=== PATIENT | male | born 1945 | race Caucasian/White ===

== ENCOUNTER 2017-12-13 10:52 | Day surgery (SDC) | payer OTHER ==
[~2017-12-13] VITALS: Ht 175.3 cm; Wt 90.3 kg
[~2017-12-13 10:52] MED LIST: ASPI-496 PO; CHOL200074 PO; FINA5TAB4 PO; LISI-170 PO; OMEP-110 PO; PRAV40TA2 PO
[2017-12-13] MEDS ORDERED: LACTATED RINGERS 1,000 ML IV SCH (11:36)
[2017-12-13 11:37] VITALS: BP 163/94
[2017-12-13] MEDS ORDERED: PLEASE ENTER HEIGHT AND WEIGHT MC SCH (12:00)
[2017-12-13] MEDS ORDERED: PROPOFOL 50 ML ONE (13:10)
[2017-12-13] MEDS ORDERED: ALBUTEROL/IPRATROPIUM 2.5MG/0.5MG, 3 ML NPPB PRN (13:30)
[2017-12-13] MEDS ORDERED: MIDAZOLAM 1 MG/ML, 2ML IV PRN (13:30)
[2017-12-13] MEDS ORDERED: FENTANYL PF 100 MCG/2ML IV PRN (13:30)
[2017-12-13] MEDS ORDERED: ONDANSETRON ODT 8 MG PO PRN (13:30)
[2017-12-13] MEDS ORDERED: LABETALOL 5MG/ML, 20ML IV PRN (13:30)
[2017-12-13] MEDS ORDERED: PROMETHAZINE 25 MG/ML, 1ML IV PRN (13:30)
[2017-12-13] MEDS ORDERED: EPHEDRINE 50 MG/ML, 1ML IVPush PRN (13:30)
== END 2017-12-13 15:10 ==
LOC: OUT 10:52
PROVIDERS: ATTEND Internal Medicine Geriatric Medicine
DX: K86.1 Other chronic pancreatitis (principal); K86.9 Disease of pancreas, unspecified; K20.8 Other esophagitis
CPT/HCPCS: 43239; 43242; 88172; 88173; 88305; 88307; 93005; J2704; J7120; 88342; G0461

== ENCOUNTER → 2018-03-08 | Outpatient (CLI) | payer OTHER ==
[~2018-03-08] MED LIST changes: +RANI150C PO
[2018-03-08 14:19] LABS: BASOPHILS # (AUTO) 0.02 x10^3/uL (0-0.1); BASOPHILS % (AUTO) 0 % (0-1); EOSINOPHILS # (AUTO) 0.13 x10^3/uL (0-0.4); EOSINOPHILS % (AUTO) 2 % (1-7); LYMPHOCYTES # (AUTO) 1.59 x10^3/uL (1-3.4); LYMPHOCYTES % (AUTO) 26 % (22-44); MD NO; MEAN CORPUSCULAR HEMOGLOBIN 30.9 pg (27.5-34.5); MEAN CORPUSCULAR HGB CONC 34.1 g/dL (33.2-36.2); MEAN CORPUSCULAR VOLUME 90.6 fL (81-97); MEAN PLATELET VOLUME 7.7 fL (7.4-10.4); MONOCYTES # (AUTO) 0.64 x10^3/uL (0.2-0.8); MONOCYTES % (AUTO) 11 % (2-9); NEUTROPHILS # (AUTO) 3.69 x10^3/uL (1.8-6.8); NEUTROPHILS % (AUTO) 61 % (42-75); PLATELET COUNT 258 x10^3/uL (130-400); RED BLOOD COUNT 5.29 x10^6/uL (4.38-5.82); RED CELL DISTRIBUTION WIDTH 12.9 % (9.4-14.8)
[2018-03-08 14:27] LABS: ALBUMIN 3.9 g/dL (3.4-5.0); ANION GAP 6 mmol/L (5-15); CALCIUM 8.6 mg/dL (8.5-10.1); CHLORIDE 107 mmol/L (98-107)
[2018-03-08 14:28] LABS: MICROSCOPIC NOT IND
[2018-03-08 14:30] LABS: ALANINE AMINOTRANSFERASE 27 U/L (12-78); ALKALINE PHOSPHATASE 81 U/L (45-117); BILIRUBIN,TOTAL 1.1 mg/dL (0.2-1.0); CREATININE 1.16 mg/dL (0.7-1.3); TOTAL PROTEIN 7.8 g/dL (6.4-8.2)
== END | disposition home or self-care (01) ==
LOC: STAR 12:52
PROVIDERS: ATTEND Urology
DX: Z01.818 Encounter for other preprocedural examination (principal); D49.512 Neoplasm of unspecified behavior of left kidney; J44.9 Chronic obstructive pulmonary disease, unspecified; Z87.891 Personal history of nicotine dependence
CPT/HCPCS: 36415; 80053; 81003; 85025; 87086; 93005

== ENCOUNTER 2018-03-16 05:44 | Inpatient (IN) | payer OTHER ==
[~2018-03-16] VITALS: Ht 175.3 cm; Wt 96.4 kg
[2018-03-16] MEDS ORDERED: FUROSEMIDE 20 MG/2 ML ONE (06:43)
[2018-03-16] MEDS ORDERED: BUPIVACAINE 0.25% ONE (06:43)
[2018-03-16] MEDS ORDERED: THROMBIN 5,000 UNIT VIAL TP ONE (06:43)
[2018-03-16] MEDS ORDERED: MANNITOL PMX 20% 500 ML ONE (06:44)
[2018-03-16] MEDS ORDERED: LACTATED RINGERS 1,000 ML IV SCH (06:44)
[2018-03-16] MEDS ORDERED: EPINEPHRINE 1 MG/ML, 1ML ONE (06:44)
[2018-03-16 06:48] VITALS: BP 152/81
[2018-03-16] MEDS ORDERED: FENTANYL PF 250 MCG/5ML ONE ×4 (07:19→10:01)
[2018-03-16] MEDS ORDERED: MIDAZOLAM 1 MG/ML, 2ML ONE (07:19)
[2018-03-16] MEDS ORDERED: OxyconTIN ER 10 MG TAB.ER PO ONE (07:30)
[2018-03-16] MEDS ORDERED: SCOPOLAMINE PATCH, 1.5MG PATCH.TD72 TD ONE (07:30)
[2018-03-16] MEDS ORDERED: ACETAMINOPHEN 500 MG TABLET PO ONE (07:30)
[2018-03-16] MEDS ORDERED: BUPIVACAINE/PF-EPI 0.25% 1:200K INFIL ONE (08:21)
[2018-03-16] MEDS ORDERED: HALOPERIDOL 5 MG/ML IV PRN (08:30)
[2018-03-16] MEDS ORDERED: LABETALOL 5MG/ML, 20ML IV PRN (08:30)
[2018-03-16] MEDS ORDERED: ONDANSETRON ODT 8 MG PO PRN (08:30)
[2018-03-16] MEDS ORDERED: MIDAZOLAM 1 MG/ML, 2ML IV PRN (08:30)
[2018-03-16] MEDS ORDERED: PROMETHAZINE 12.5 MG SUPP PR PRN (08:30)
[2018-03-16] MEDS ORDERED: HYDROmorphone 1 MG/ML, 1ML IV PRN (08:30)
[2018-03-16] MEDS ORDERED: ONDANSETRON 2MG/ML, 2ML IV PRN ×2 (08:30→15:00)
[2018-03-16] MEDS ORDERED: ROCURONIUM 10MG/ML,5ML ONE (08:30)
[2018-03-16] MEDS ORDERED: MEPERIDINE/PF 25MG/0.5ML IVPush PRN (08:30)
[2018-03-16] MEDS ORDERED: EPHEDRINE 50 MG/ML, 1ML IVPush PRN (08:30)
[2018-03-16] MEDS ORDERED: LORazepam 2 MG/ML, 1ML IVPush PRN (08:30)
[2018-03-16] MEDS ORDERED: OXYcodone 5 MG/5 ML ORAL.SOL UDC PO PRN (08:30)
[2018-03-16] MEDS ORDERED: MORPHINE SULFATE 4 MG/ML, 1ML IVPush PRN (08:30)
[2018-03-16] MEDS ORDERED: FENTANYL PF 100 MCG/2ML IV PRN (08:30)
[2018-03-16] MEDS ORDERED: PROPOFOL 10 MG/ML, 20ML ONE (08:30)
[2018-03-16] MEDS ORDERED: PROMETHAZINE 25 MG/ML, 1ML IV PRN (08:30)
[2018-03-16] MEDS ORDERED: ALBUTEROL SULFATE 2.5 MG/3 ML NPPB PRN (08:30)
[2018-03-16] MEDS ORDERED: hydrALAzine 20 MG/ML, 1ML IV PRN (08:30)
[2018-03-16] MEDS ORDERED: PHENYLEPHRINE 10 MG/ML ONE (08:31)
[2018-03-16] MEDS ORDERED: SUGAMMADEX 200 MG/2 ML IVPush ONE (10:44)
[2018-03-16] MEDS ORDERED: HYDROmorphone 2 MG/ML, 1ML ONE (11:41)
[2018-03-16] MEDS ORDERED: FENTANYL PF 100 MCG/2ML ONE (11:41)
[2018-03-16] MEDS ORDERED: hydrALAzine 20 MG/ML, 1ML ONE (12:40)
[2018-03-16] MEDS ORDERED: morphine SULFATE 10 MG/ML, 1ML IV PRN (15:00)
[2018-03-16] MEDS ORDERED: TEMAZEPAM 15 MG CAPSULE PO PRN (15:00)
[2018-03-16] MEDS ORDERED: ONDANSETRON 2MG/ML, 2ML ONE (15:49)
[2018-03-16] MEDS ORDERED: DEXAMETHASONE 4 MG/ML, 1ML ONE (15:49)
[2018-03-16] MEDS: D5%-0.45NACL+KCL 20MEQ 1,000 ML IV SCH (16:23)
[2018-03-16] MEDS: HYDROcodone/APAP 5/325 TABLET PO PRN ×2 (16:29→20:41)
[2018-03-16] MEDS: CEFAZOLIN PMX 1GM/50ML 50 ML IVPB SCH (17:50)
[2018-03-16 20:27] VITALS: BP 122/70
[2018-03-17] VITALS: BP 118/68
[2018-03-17] MEDS: D5%-0.45NACL+KCL 20MEQ 1,000 ML IV SCH ×3 (00:31→18:05)
[2018-03-17] MEDS: CEFAZOLIN PMX 1GM/50ML 50 ML IVPB SCH (01:41)
[2018-03-17] MEDS: HYDROcodone/APAP 5/325 TABLET PO PRN ×4 (02:31→18:04)
[2018-03-17 04:13] VITALS: BP 120/72
[2018-03-17 05:31] LABS: ANION GAP 6 mmol/L (5-15); CALCIUM 7.8 mg/dL (8.5-10.1); CHLORIDE 106 mmol/L (98-107)
[2018-03-17 05:33] LABS: CREATININE 1.37 mg/dL (0.7-1.3)
[2018-03-17] MEDS: ENOXAPARIN 40 MG/0.4 ML SQ SCH (06:34)
[2018-03-17 08:00] VITALS: BP 133/73
[2018-03-17] MEDS: LISINOPRIL 20 MG TABLET PO SCH (08:53)
[2018-03-17] MEDS: PRAVASTATIN 40 MG TABLET PO SCH (08:53)
[2018-03-17] MEDS: FINASTERIDE 5 MG TABLET PO SCH (08:54)
[2018-03-17] MEDS: FAMOTIDINE 40 MG TABLET PO SCH (08:54)
[2018-03-17 12:34] VITALS: BP 117/67
[2018-03-17 19:17] VITALS: BP 155/75
[2018-03-18] MEDS: HYDROcodone/APAP 5/325 TABLET PO PRN ×5 (00:35→20:24)
[2018-03-18 00:41] VITALS: BP 153/81
[2018-03-18] MEDS: D5%-0.45NACL+KCL 20MEQ 1,000 ML IV SCH ×3 (02:33→18:24)
[2018-03-18 05:03] LABS: CHLORIDE 105 mmol/L (98-107)
[2018-03-18 05:08] LABS: ANION GAP 5 mmol/L (5-15); CALCIUM 7.7 mg/dL (8.5-10.1); CREATININE 1.33 mg/dL (0.7-1.3)
[2018-03-18] MEDS: ENOXAPARIN 40 MG/0.4 ML SQ SCH (06:38)
[2018-03-18 07:24] VITALS: BP 151/77
[2018-03-18] MEDS: FAMOTIDINE 40 MG TABLET PO SCH (08:28)
[2018-03-18] MEDS: FINASTERIDE 5 MG TABLET PO SCH (08:29)
[2018-03-18] MEDS: LISINOPRIL 20 MG TABLET PO SCH (08:29)
[2018-03-18] MEDS: PRAVASTATIN 40 MG TABLET PO SCH (08:29)
[2018-03-18 13:05] VITALS: BP 143/80
[2018-03-18 18:44] VITALS: BP 157/75
[2018-03-19] MEDS: HYDROcodone/APAP 5/325 TABLET PO PRN ×5 (00:38→21:04)
[2018-03-19 01:02] VITALS: BP 158/83
[2018-03-19] MEDS: D5%-0.45NACL+KCL 20MEQ 1,000 ML IV SCH ×3 (02:15→17:28)
[2018-03-19 05:46] LABS: ANION GAP 7 mmol/L (5-15); CALCIUM 8.2 mg/dL (8.5-10.1); CHLORIDE 103 mmol/L (98-107)
[2018-03-19] MEDS: ENOXAPARIN 40 MG/0.4 ML SQ SCH (06:45)
[2018-03-19 07:14] VITALS: BP 170/78
[2018-03-19] MEDS: LISINOPRIL 20 MG TABLET PO SCH (08:51)
[2018-03-19] MEDS: PRAVASTATIN 40 MG TABLET PO SCH (08:52)
[2018-03-19] MEDS: FINASTERIDE 5 MG TABLET PO SCH (08:52)
[2018-03-19] MEDS: FAMOTIDINE 40 MG TABLET PO SCH (08:52)
[2018-03-19 13:54] VITALS: BP 161/83
[2018-03-19] MEDS ORDERED: BISACODYL 10 MG SUPP PR PRN (17:30)
[2018-03-19 20:03] VITALS: BP 148/77
[2018-03-19] MEDS: DOCUSATE 100 MG CAPSULE PO SCH (21:04)
[2018-03-20] MEDS: HYDROcodone/APAP 5/325 TABLET PO PRN ×3 (01:30→12:39)
[2018-03-20 01:34] VITALS: BP 161/74
[2018-03-20 05:28] LABS: ANION GAP 6 mmol/L (5-15); CALCIUM 8.4 mg/dL (8.5-10.1); CHLORIDE 102 mmol/L (98-107); CREATININE 1.13 mg/dL (0.7-1.3)
[2018-03-20] MEDS: ENOXAPARIN 40 MG/0.4 ML SQ SCH (06:50)
[2018-03-20 08:00] VITALS: BP 146/87
[2018-03-20] MEDS: DOCUSATE 100 MG CAPSULE PO SCH (08:45)
[2018-03-20] MEDS: FINASTERIDE 5 MG TABLET PO SCH (08:46)
[2018-03-20] MEDS: FAMOTIDINE 40 MG TABLET PO SCH (08:47)
[2018-03-20] MEDS: LISINOPRIL 20 MG TABLET PO SCH (08:49)
[2018-03-20] MEDS: PRAVASTATIN 40 MG TABLET PO SCH (08:49)
[2018-03-20] MEDS ORDERED: HYDR-3240 PO (11:01)
[2018-03-20 13:28] VITALS: BP 152/76
== END 2018-03-20 15:00 | disposition home or self-care (01) | DRG 656 ==
LOC: OUT 05:44 → 4NOR 13:54 → OUT 13:58 → 4NOR 13:58 → DCLOUNGE 03-20 14:50
PROVIDERS: ADMIT Urology; ATTEND Urology
PROC: 0WQF4ZZ Repair Abdominal Wall, Percutaneous Endoscopic Approach (ICD-10-PCS; 2018-03-16)
PROC: 8E0W4CZ Robotic Assisted Procedure of Trunk Region, Percutaneous Endoscopic Approach (ICD-10-PCS; 2018-03-16)
PROC: 0TB14ZZ Excision of Left Kidney, Percutaneous Endoscopic Approach (ICD-10-PCS; principal; 2018-03-16 07:30)
DX: C64.2 Malignant neoplasm of left kidney, except renal pelvis (principal); N17.0 Acute kidney failure with tubular necrosis; K42.9 Umbilical hernia without obstruction or gangrene; I10 Essential (primary) hypertension; K21.9 Gastro-esophageal reflux disease without esophagitis; N40.0 Benign prostatic hyperplasia without lower urinary tract symptoms
CPT/HCPCS: 36415; 80048; 82570; 85014; 85018; 86850; 86900; 88307; 88341; 88342; C1729; G0378; J0171; J0690; J1100; J1170; J1650; J2250; J2405; J2704; J3010; J3490; C1760; G0461; J0360; J1940; J2370; J3480; J7120